=== PATIENT | female | born 1970 | race Caucasian/White ===

== ENCOUNTER → 2017-05-03 | Outpatient (CLI) | payer BC ==
[2017-05-03 15:03] LABS: BASOPHIL # 0.1 K/uL (0.0-0.2); EOSINOPHIL # 0.1 K/uL (0.0-0.5); EOSINOPHIL % 1.6 %; HEMOGLOBIN 9.5 g/dL (10.0-15.0); IMMATURE GRANULOCYTE % 0.2 %; LYMPHOCYTE # 1.5 K/uL (0.8-4.0); MCH 21.3 pg (27.0-34.0); MCHC 29.7 gm/dL (32.0-36.5); MCV 71.6 fl (83.0-98.0); MONOCYTE # 0.6 K/uL (0.0-1.0); MONOCYTE % 11.8 %; NEUTROPHIL # (ANC) 2.9 K/uL (1.8-7.8); NEUTROPHIL % 56.4 %; NRBC % 0 /100WBC (0-0.00); PLATELET COUNT 309 K/uL (150-450); RBC 4.47 M/uL (3.50-5.50); RDW-CV 19.8 % (11.9-14.6); WBC 5.1 K/uL (4.0-11.0)
[2017-05-03 15:17] LABS: ALBUMIN 3.3 gm/dL (3.5-5.0); ANION GAP 8.7 (10.0-19.0); CALCIUM 8.2 mg/dL (8.5-10.5); PHOSPHORUS 2.7 mg/dL (2.5-4.9); POTASSIUM 3.7 mMol/L (3.7-5.1)
== END | disposition disaster alternative care site (69) ==
LOC: GLAB 14:37
PROVIDERS: Obstetrics & Gynecology
DX: D25.9 Leiomyoma of uterus, unspecified (principal); D25.1 Intramural leiomyoma of uterus; N85.2 Hypertrophy of uterus